=== PATIENT | female | born 1985 | race American Indian/Alaskan Native ===

== ENCOUNTER 2018-07-09 16:29 | Outpatient (CLI) | payer OTHER ==
--- NOTE | 2018-07-10 08:30 | Mammography Report ---
Bilateral mammogram: Compared to 05/26/15. CAD study utilized. Findings: Predominance adipose tissue bilaterally. Benign density left breast without interval change. Benign axillary nodes. Groups of calcifications identified at the lower left axilla not seen in the previous study. Probably benign. Impression: Calcifications left lower axilla. Spot compression and magnification views are recommended for further evaluation. BI-RADS CATEGORY: 0 = Needs additional imaging evaluation ACR BI-RADS MAMMOGRAPHIC CODES: 0 = Needs additional imaging evaluation; 1 = Negative; 2 = Benign; 3 = Probably benign; 4 = Suspicious; 5 = Malignant; 6 = Known biopsy-proven malignancy COMMENT: 1. Dense breast tissue, i.e., adenosis, fibrocystic changes, etc., may obscure an underlying neoplasm. 2. Approximately 10% of cancers are not detected with mammography. 3. A negative mammography report should not delay biopsy if a clinically suspicious mass is present. COMMENT: Patient follow-up letters are generated in [employer].
== END 2018-07-09 16:30 | disposition home or self-care (01) ==
LOC: SPVWC 16:29
PROVIDERS: ATTEND Obstetrics & Gynecology
DX: Z12.31 Encounter for screening mammogram for malignant neoplasm of breast (principal)
CPT/HCPCS: 77067